=== PATIENT | female | born 1980 | race Two or more races ===

== ENCOUNTER 2019-09-16 07:25 | Emergency (ER) | payer MEDICAID, OTHER ==
[~2019-09-16] VITALS: Ht 162.6 cm; Wt 65.0 kg
[2019-09-16] MEDS ORDERED: TETRACAINE 0.5% OPHTH DROPS 4ML RIGHTEYE ONE (08:30)
[2019-09-16] MEDS ORDERED: HYDROCODONE/ACETAMINOPHEN 5/325MG TABLET PO ONE (08:30)
[2019-09-16] MEDS ORDERED: FLUORESCEIN SODIUM 1MG/STRIP RIGHTEYE ONE (08:30)
[2019-09-16] MEDS ORDERED: KETOROLAC 15MG/ML VIAL IM ONE (11:15)
[2019-09-16] MEDS ORDERED: BACITRACIN ZINC OINT UDPKT TOP ONE (11:30)
[2019-09-16] MEDS ORDERED: TETANUS, DIPHTHERIA, PERTUSSIS VAC/PF 0.5ML (>7YR OLD) IM ONE (11:30)
[2019-09-16 12:03] VITALS: BP 142/81
== END 2019-09-16 12:08 | disposition home or self-care (01) ==
LOC: ER 07:25
DX: S05.11XA Contusion of eyeball and orbital tissues, right eye, initial encounter (principal); Y08.89XA Assault by other specified means, initial encounter; Y93.89 Activity, other specified; Y92.89 Other specified places as the place of occurrence of the external cause; Y99.8 Other external cause status; F17.200 Nicotine dependence, unspecified, uncomplicated; F12.10 Cannabis abuse, uncomplicated; Z98.890 Other specified postprocedural states
CPT/HCPCS: 70450; 70486; 72125; 73110; 73130; 73560; 90471; 90715; 96372; 99284; J1885; Z7610